=== PATIENT | female | born 1990 | race Caucasian/White ===

== ENCOUNTER 2016-10-24 08:00 | Inpatient (IN) ==
[2016-10-24 08:17] VITALS: BMI 36.9
[2016-10-24] MEDS ORDERED: CARBOPROST 250 MCG/ML INJECTION IM PRN (08:19)
[2016-10-24] MEDS ORDERED: METHYLERGONOVINE 0.2 MG/ML INJECTION IM PRN (08:19)
[2016-10-24] MEDS ORDERED: CALCIUM CARBONATE Chewable 500mg TABLET PO PRN ×2 (08:19→16:59)
[2016-10-24] MEDS ORDERED: ACETAMINOPHEN 500 MG TABLET PO PRN ×2 (08:19→16:59)
[2016-10-24] MEDS ORDERED: MAG-AL + SIM ORAL LIQUID 30ml PO PRN ×2 (08:19→16:59)
[2016-10-24] MEDS ORDERED: LIDOCAINE 1% (10mg/ml) 2mL INJ PF SDV ID PRN (08:19)
[2016-10-24] MEDS ORDERED: D5LR 1,000 ML IV PRN (08:24)
[2016-10-24] MEDS ORDERED: OXYTOCIN DRIP 30 UNIT/500 ML ML IV PRN (08:24)
[2016-10-24] MEDS: LR 1,000 ML IV PRN ×2 (08:40→12:37)
--- NOTE | 2016-10-24 09:08 | Anesthesia Preoperative Report ---
Anesthesia Epidural/Spinal Rec - Date and Time Date: 10/24/16 Preoperative Diagnosis: induction Procedure: Labor Epidural Plan: Epidural - Vital Signs Vital Signs: Temp Pulse Resp BP Pulse Ox 97.6 F 96 16 122/78 97 10/24/16 08:53 10/24/16 08:53 10/24/16 08:53 10/24/16 08:53 10/24/16 08:53 /Para: P:1 - Medictaions & Allergies Inpatient Medications: Current Medications Acetaminophen (Tylenol) 500 - 1,000 mg PO Q4H PRN PRN Reason: Pain Al Hydroxide/Mg Hydroxide (Maalox Plus) 30 ml PO Q3H PRN PRN Reason: Indigestion Calcium Carbonate (Tums) 500 - 1,000 mg PO Q2H PRN PRN Reason: Indigestion Carboprost Tromethamine (Hemabate) 250 mcg IM O PRN PRN Reason: .Downtime Lactated Ringer's (Lactated Ringers) 1,000 mls @ 1,000 mls/hr IV .Q1H PRN PRN Reason: as directed Last Admin: 10/24/16 08:40 Dose: 1,000 mls/hr Oxytocin (Pitocin Drip) 30 unit in 500 mls @ 2 mls/hr IV .Q24H PRN; Protocol PRN Reason: Induction/Augmentation Last Admin: 10/24/16 08:42 Dose: 2 mls/hr Dextrose/Lactated Ringer's (Dextrose 5%-Lactated Ringers) 1,000 mls @ 125 mls/ hr IV .Q8H PRN PRN Reason: Labor Last Admin: 10/24/16 09:04 Dose: 125 mls/hr Lidocaine HCl (Xylocaine-Mpf 1% Vial) 0.2 mg ID O PRN PRN Reason: IV Start Methylergonovine Maleate (Methergine) 0.2 mg IM O PRN Misoprostol (Cytotec) 800 mcg WI ONCE PRN Allergies/Adverse Reactions: Allergies Allergy/AdvReac Type Severity Reaction Status Date / Time No Known Allergies Allergy Verified 10/24/16 08:17 - Home Medications Home Medications: Home Medications Medication Instructions Recorded Confirmed Type Docosahexanoic Acid [ Dha] 1 cap PO DAILY #0 cap 12/25/14 History - Medical History Gastrointestional: Reports: Morbid Obesity (obese) - Surgical History Anesthesia Reactions: None Hx Family Anesthesia Reaction: No History of Motion Sickness: No - Social History Second Hand Exposure: No Substance Use Type: does not use Alcohol Intake Frequency: does not drink Hx Chewing Tobacco Use: No - Pertinent Findings Lab Data: CBC and BMP 10/24/16 08:37 - Physical Exam Respiratory Exam: lungs clear Cardiovascular Exam: regular rate and rhythm - Airway Assessment Mallampati Score: II TMD: 3 Fingerbreadths Neck Extension: good Overall Assessment: no airway concerns - Discussion Discussion: Discussed risks/options/alternatives of anesthesia and questions answered. Patient consents. Nursing pain assessment noted. Anesthesia Discussion: spouse Attestation Statement: Prior to the delivery of any anesthetic medication, I examined the patient, developed the plan, obtained the patient's consent and discussed the risk and benefits of the procedure with the patient/guardian.
[2016-10-24] MEDS ORDERED: ROPIVACAINE 1% 10MG/ML INJ 200 MG, SUFentanil 50 MCG in NS 80 ML EPI ONE (13:00)
[2016-10-24] MEDS ORDERED: SALINE FLUSH 10ml SYRINGE IVF PRN (16:59)
[2016-10-24] MEDS ORDERED: HYDROCORTISONE 2.5% CREAM 30gm RECTALLY PRN (16:59)
[2016-10-24] MEDS ORDERED: DiphenhydrAMINE 25 MG CAPSULE PO PRN (16:59)
[2016-10-24] MEDS ORDERED: BENZOCAINE 20% SPRAY 0.5 ML MM ONE (16:59)
[2016-10-24] MEDS ORDERED: OXYTOCIN DRIP 30 UNIT/500 ML ML IV SCH (16:59)
--- NOTE | 2016-10-24 17:45 | Anesthesia Postoperative Note ---
- Date and Time Date: 10/24/16 Time: 17:44 - Status Patient Participated in Evaluation: Patient Participated in Person Vital Signs: Temp Pulse Resp BP Pulse Ox 97.6 F 96 16 122/78 97 10/24/16 08:53 10/24/16 08:53 10/24/16 08:53 10/24/16 08:53 10/24/16 08:53 Respiratory Function: Airway Patent Cardiovascular Function: Regular Pulse EKG Rhythm: Normal Sinus Rhythm Mental Status: Alert and Oriented Pain Intensity: 0 Unable to Assess Pain Due to: Patient Sleeping Hydration: Taking PO Fluids Complications During Recover: None Apparent - Follow-Up Instructions Instructions: Per Surgeon
[2016-10-24] MEDS ORDERED: LR 1,000 ML IV SCH (19:15)
[2016-10-25] MEDS: IBUPROFEN 800 MG TABLET PO PRN ×2 (03:39→14:30)
--- NOTE | 2016-10-25 08:00 | Progress Note ---
OB PP Progress Note Free Text - Date Date: 10/25/16 - Progress Note Progress Note: vss af doing well no c/o continue current care path
[2016-10-25] MEDS: HYDROCODONE/APAP 5mg/325mg TABLET PO PRN ×2 (08:30→15:27)
--- NOTE | 2016-10-25 08:36 | Discharge Instructions ---
Discharge Plan - Med Rec/Dispo Referrals/Follow Up: Luz Ayers MD [Physician] - 5-6 Weeks Prescriptions: Continue Docosahexanoic Acid [ Dha] 1 cap PO DAILY #0 cap - Disposition 01 Discharged Home, Self-Care
[2016-10-25] MEDS ORDERED: DOCUSATE CALCIUM 240 MG CAPSULE PO SCH (09:00)
[2016-10-25 12:46] VITALS: PULSE 65
[2016-10-25 19:25] VITALS: BP 112/58; RESP 18; TEMP 97.8; O2SAT 97
--- NOTE | 2016-11-12 07:13 | Labor and Delivery Note ---
LATE ENTRY DATE OF DELIVERY: 10/24/2016 DIAGNOSES 1. 26-year-old white female, G2, P1, at 39.0 weeks gestational age. 2. Pitocin induction of labor for logistics. 3. AROM. 4. Epidural anesthesia. 5. Spontaneous vaginal delivery. 6. Nuchal cord x 1. 7. Female infant, 3570 g (Jake Jon). 8. First-degree perineal laceration - repaired. BRIEF DESCRIPTION This is a patient of Dr. Ayers who set up an induction for today for logistics. Dr. Ayers is out of town today, so I managed the induction. The patient is 39.0. Artificial rupture of membranes was clear fluid. Epidural was placed. She made it to complete dilation and had a spontaneous vaginal delivery from the OA presentation. There was a nuchal cord x 1 that was delivered through. Infant was bulb suctioned on the perineum and then again after delivery. Cord was allowed to drain for about a [id number] before it was doubly clamped and cut. Placenta delivered spontaneously and was intact. There was a first-degree perineal laceration that was repaired. Maternal blood type is O+, rubella is immune and GBS was negative. The patient did well and went home the next day. [facility]
== END 2016-10-25 17:53 | disposition home or self-care (01) | DRG 775 ==
LOC: MC 08:07
PROVIDERS: ADMIT Obstetrics & Gynecology; ATTEND Obstetrics & Gynecology